=== PATIENT | male | born 1965 | race African-American/Black ===

== ENCOUNTER 2021-05-01 19:39 | Emergency (ER) | payer OTHER ==
[~2021-05-01] VITALS: Ht 177.8 cm; Wt 106.6 kg
[2021-05-01] MEDS ORDERED: OXYcodone/APAP 5/325MG TABLET ONE (21:10)
[2021-05-01] MEDS ORDERED: IBUPROFEN 800 MG TABLET ONE (21:10)
[2021-05-01] MEDS ORDERED: IBUPROFEN 800 MG TABLET PO ONE (21:30)
[2021-05-01] MEDS ORDERED: OXYcodone/APAP 5/325MG TABLET PO ONE (21:30)
[2021-05-01 23:13] VITALS: BP 148/88
== END 2021-05-01 23:15 | disposition home or self-care (01) ==
LOC: ED 22:00
DX: S82.62XA Displaced fracture of lateral malleolus of left fibula, initial encounter for closed fracture (principal); I10 Essential (primary) hypertension; E78.5 Hyperlipidemia, unspecified; W18.30XA Fall on same level, unspecified, initial encounter; Y93.89 Activity, other specified; Y92.89 Other specified places as the place of occurrence of the external cause; Y99.8 Other external cause status
CPT/HCPCS: 29515; 99283